=== PATIENT | male | born 1965 | race Caucasian/White ===

== ENCOUNTER 2020-08-20 10:37 | Outpatient (CLI) | payer BC, OTHER ==
--- NOTE | 2020-08-20 11:33 | RAD ---
Exam: Lumbar spine 5 views HISTORY: Left sciatic nerve pain FINDINGS: 5 lumbar type vertebra. Lumbar spine vertebral body height is maintained. No fracture. No spondylolisthesis. No spondylolysis. There is straightening of normal lumbar lordosis. Mild osteophyte formation at L1-L2. Mild loss of disc space at L4-L5 and L5-S1. Incidentals: Suture chain and surgical clips Visualized sacrum and bony pelvis are intact IMPRESSION: No radiographic evidence of significant degenerative change. Additional imaging if clinic ally warranted.
== END 2020-08-20 10:38 | disposition home or self-care (01) ==
LOC: RAD 10:37
PROVIDERS: ATTEND Nurse Practitioner Family
DX: M54.32 Sciatica, left side (principal); Z76.89 Persons encountering health services in other specified circumstances
CPT/HCPCS: 72110

== ENCOUNTER 2025-05-29 18:44 | Inpatient (IN) | payer MEDICARE ==
[2025-05-29 20:50] LABS: Hematocrit 29.3 % (42.0-52.0); Hemoglobin 9.9 g/dL (14.0-18.0); Mean Corpuscular Hemoglobin 34.4 pg (27.0-31.0); Mean Corpuscular Volume 101.7 fL (78.0-98.0); Platelet Count 160 10x3/uL (130-400); Red Blood Cell (RBC) Count 2.88 mill/uL (4.70-6.10); White Blood Cell (WBC) Count 4.80 10x3/uL (4.8-10.8)
[2025-05-29 20:59] LABS: Actual Bicarbonate (HCO3v) 26.3 mEq/L (22-28); Base Excess 4.0 mEq/L (-2.0 to +3.0); Calcium, Ionized (venous) 0.96 mmol/L (1.16-1.32); Chloride (VBG) 102 mmol/L (98-106); Hematocrit-VBG 28 % (42.0-52.0); Hemoglobin (Hb) 9.5 g/dL (13.1-17.2); Potassium (VBG) 3.87 mmol/L (3.70-5.30); Sodium 135 mmol/L (133-146)
[2025-05-29 21:14] LABS: ALT (SGPT) 337 U/L (Less than 45); AST (SGOT) 1433 U/L (11-34); Albumin 1.4 g/dL (3.1-4.5); Alkaline Phosphatase 501 U/L (40-110); Anion Gap 18 mmol/L (10-20); BUN (Urea Nitrogen) 76 mg/dL (8.4-25.7); Bilirubin, Total 0.9 mg/dL (0.3-1.2); Calc. Creatinine Clearance 0 mL/min (70-130); Calcium 6.9 mg/dL (7.8-10.44); Carbon Dioxide 28 mmol/L (22-29); Chloride 101 mmol/L (98-107); Globulin 3.3 g/dL (2.4-3.5); Glucose 36 mg/dL (70-105); Magnesium 2.6 mg/dL (1.6-2.6); Potassium 4.0 mmol/L (3.5-5.1); Sodium 143 mmol/L (136-145)
[2025-05-29 21:19] LABS: CAUTI Indications for Culture Dysuria,urgency,freq; Glucose, Urine (Dipstick) Normal (Negative); Leukocyte Negative Leu/uL (Negative); Protein, Urine (Dipstick) 20 mg/dL (Neg-Trace); RBC/HPF 0-3 HPF (0-3); Specific Gravity, Urine 1.026 (1.002-1.036); WBC/HPF 0-3 HPF (0-3)
[2025-05-29 21:21] LABS: Bacteria/HPF 1+ HPF (None Seen)
[2025-05-29 21:22] LABS: Urine Culture Reflex No No
[2025-05-29 21:28] LABS: Macrocytosis SLIGHT = 6-15 cells HPF (0-5); Platelet Adequacy Comment Platelets Normal; Smudge Cells 30.8 %
[2025-05-29] MEDS ORDERED: Calcium Chloride 1 GM/10 ML Abboject SYRINGE ONE (21:30)
[2025-05-29] MEDS ORDERED: Dextrose 50% Abboject 50 ML SYRINGE ONE (21:30)
[2025-05-29] MEDS ORDERED: cefTRIAXone (ROCEPHIN) 1 GM VIAL ONE ×2 (21:32→22:27)
[2025-05-29] MEDS ORDERED: CALCIUM GLUC 1 GM/NS 50 ML IV Bag ONE (21:44)
[2025-05-29] MEDS ORDERED: NOREPINEPHRINE 8 MG/250 ML-D5W 250 ML ONE (21:48)
[2025-05-29 22:05] LABS: INR-International Normal Ratio 1.4; PTT 35.6 sec (22.9-36.1); Prothrombin Time 17.4 sec (12.0-14.7)
[2025-05-29 22:11] LABS: Troponin I 0.017 ng/mL (< 0.028)
[2025-05-30] MEDS ORDERED: Dextrose 50% Abboject 50 ML SYRINGE ONE (00:01)
[2025-05-30] MEDS ORDERED: Glucagon 1 MG/ML KIT IM PRN (00:23)
[2025-05-30 01:15] VITALS: BMI 19.4
[2025-05-30] MEDS: Albumin 5% 12.5 GM (250 mL) BOT IVPB SCH (01:43)
[2025-05-30] MEDS: Pantoprazole 40 MG VIAL IVP SCH ×2 (01:43→09:24)
[2025-05-30] MEDS: Dextrose 50% Abboject 50 ML SYRINGE SLOW IVP SCH (01:47)
[2025-05-30 02:59] LABS: #Basophils Less than 0.03 10x3/uL (0.0-0.2); #Eosinophils 0.03 10x3/uL (0.0-0.7); #Monocytes 0.30 10x3/uL (0.11-0.59); #Neutrophils 3.80 10x3/uL (1.40-6.50); %Basophils 0.2 % (0.0-1.0); %Eosinophils 0.6 % (0.0-10.0); %Lymphocytes 16.9 % (21.0-51.0); %Monocytes 6.0 % (0.0-10.0); %Neutrophils 75.5 % (42.0-75.0); Hematocrit 26.7 % (42.0-52.0); Hemoglobin 8.9 g/dL (14.0-18.0); Mean Corpuscular Hemoglobin 33.8 pg (27.0-31.0); Mean Corpuscular Volume 101.5 fL (78.0-98.0); Platelet Count 149 10x3/uL (130-400); Red Blood Cell (RBC) Count 2.63 mill/uL (4.70-6.10); White Blood Cell (WBC) Count 5.03 10x3/uL (4.8-10.8)
[2025-05-30] MEDS: Dextrose 50% Abboject 50 ML SYRINGE SLOW IVP PRN (05:13)
[2025-05-30] MEDS: Pancrelipase DR 12,000 1 CAP PO SCH (09:12)
[2025-05-30] MEDS: Enoxaparin 40 MG (0.4 mL) SYRINGE SC SCH (09:24)
[2025-05-30] MEDS: cefTRIAXone\\ROCEPHIN 2 GM in Sodium Chloride 0.9% 100 ML IVPB SCH (17:39)
[2025-05-30] MEDS ORDERED: cefTRIAXone\\ROCEPHIN 1 GM in Sodium Chloride 0.9% 100 ML IVPB SCH (18:00)
[2025-05-31 04:36] LABS: #Basophils Less than 0.03 10x3/uL (0.0-0.2); #Eosinophils Less than 0.03 10x3/uL (0.0-0.7); #Monocytes 0.21 10x3/uL (0.11-0.59); #Neutrophils 2.39 10x3/uL (1.40-6.50); %Basophils 0.0 % (0.0-1.0); %Eosinophils 0.3 % (0.0-10.0); %Lymphocytes 29.2 % (21.0-51.0); %Monocytes 5.7 % (0.0-10.0); %Neutrophils 64.5 % (42.0-75.0); Hematocrit 21.3 % (42.0-52.0); Hemoglobin 7.1 g/dL (14.0-18.0); Mean Corpuscular Hemoglobin 33.5 pg (27.0-31.0); Mean Corpuscular Volume 100.5 fL (78.0-98.0); Platelet Count 125 10x3/uL (130-400); Red Blood Cell (RBC) Count 2.12 mill/uL (4.70-6.10); White Blood Cell (WBC) Count 3.70 10x3/uL (4.8-10.8)
[2025-05-31 04:56] LABS: ALT (SGPT) 151 U/L (Less than 45); AST (SGOT) 310 U/L (11-34); Albumin 2.2 g/dL (3.1-4.5); Alkaline Phosphatase 272 U/L (40-110); Anion Gap 9 mmol/L (10-20); BUN (Urea Nitrogen) 57 mg/dL (8.4-25.7); Bilirubin, Total 0.4 mg/dL (0.3-1.2); Calc. Creatinine Clearance 87 mL/min (70-130); Calcium 6.7 mg/dL (7.8-10.44); Carbon Dioxide 29 mmol/L (22-29); Chloride 100 mmol/L (98-107); Globulin 2.1 g/dL (2.4-3.5); Glucose 106 mg/dL (70-105); Potassium 3.3 mmol/L (3.5-5.1); Sodium 135 mmol/L (136-145)
[2025-05-31] MEDS ORDERED: Dextrose 50% Abboject 50 ML SYRINGE SLOW IVP PRN (05:54)
[2025-05-31] MEDS ORDERED: CALCIUM GLUC 1 GM/NS 50 ML 1 GM in Premix 1 BAG IVPB SCH (06:00)
[2025-05-31] MEDS ORDERED: Sodium Bicarb 50 MEQ/50 ML Abboject 8.4% SYRINGE IVP SCH (06:00)
[2025-05-31] MEDS: CALCIUM GLUC 1 GM/NS 50 ML 1 GM in Premix 1 BAG IVPB SCH (06:16)
[2025-06-01 04:49] LABS: #Basophils Less than 0.03 10x3/uL (0.0-0.2); #Eosinophils Less than 0.03 10x3/uL (0.0-0.7); #Monocytes 0.18 10x3/uL (0.11-0.59); #Neutrophils 2.45 10x3/uL (1.40-6.50); %Basophils 0.0 % (0.0-1.0); %Eosinophils 0.3 % (0.0-10.0); %Lymphocytes 25.1 % (21.0-51.0); %Monocytes 5.1 % (0.0-10.0); %Neutrophils 68.9 % (42.0-75.0); Hematocrit 23.8 % (42.0-52.0); Hemoglobin 8.0 g/dL (14.0-18.0); Mean Corpuscular Hemoglobin 33.9 pg (27.0-31.0); Mean Corpuscular Volume 100.8 fL (78.0-98.0); Platelet Count 122 10x3/uL (130-400); Red Blood Cell (RBC) Count 2.36 mill/uL (4.70-6.10); White Blood Cell (WBC) Count 3.55 10x3/uL (4.8-10.8)
[2025-06-01 05:00] LABS: Iron 61 ug/dL (65-175); Iron Binding Capacity, Total 41 mcg/dL (261-462)
[2025-06-01 05:04] LABS: ALT (SGPT) 117 U/L (Less than 45); AST (SGOT) 166 U/L (11-34); Albumin 1.9 g/dL (3.1-4.5); Alkaline Phosphatase 273 U/L (40-110); Anion Gap 12 mmol/L (10-20); BUN (Urea Nitrogen) 42 mg/dL (8.4-25.7); Bilirubin, Total 0.5 mg/dL (0.3-1.2); Calc. Creatinine Clearance 99 mL/min (70-130); Calcium 6.8 mg/dL (7.8-10.44); Carbon Dioxide 26 mmol/L (22-29); Chloride 99 mmol/L (98-107); Globulin 2.6 g/dL (2.4-3.5); Glucose 102 mg/dL (70-105); Iron 70 ug/dL (65-175); Iron Binding Capacity, Total 43 mcg/dL (261-462); Potassium 3.4 mmol/L (3.5-5.1); Sodium 134 mmol/L (136-145)
[2025-06-01] MEDS: CALCIUM GLUC 1 GM/NS 50 ML 1 GM in Premix 1 BAG IVPB SCH (06:49)
[2025-06-01] MEDS: Albumin 5% 25 GM (500 mL) BOT IVPB SCH (07:44)
[2025-06-01] MEDS: Potassium Chloride 20 MEQ in Premix 1 BAG IVPB SCH (12:27)
[2025-06-01] MEDS ORDERED: Sodium Bicarbonate 2.5 MEQ/5 ML SDV ONE (14:58)
[2025-06-01] MEDS ORDERED: Lidocaine 1% w/Epinephrine 1:100K 20 ML VIAL ONE (14:58)
[2025-06-01] MEDS ORDERED: Lidocaine 1% PF 5 ML VIAL ONE (14:58)
[2025-06-01 17:55] LABS: RBC Count-Automated (BF) 39 /cu.mm; WBC/Nucleated-Auto (BF) 49 /cu.mm
[2025-06-01 18:35] LABS: BF Segmented Neutrophils 23 %; Cell Count Non Hematic 29 %
[2025-06-01] MEDS: Ondansetron PF 4 MG/2 ML Vial IVP PRN (20:41)
[2025-06-02 05:36] LABS: #Basophils Less than 0.03 10x3/uL (0.0-0.2); #Eosinophils Less than 0.03 10x3/uL (0.0-0.7); #Monocytes 0.25 10x3/uL (0.11-0.59); #Neutrophils 3.46 10x3/uL (1.40-6.50); %Basophils 0.0 % (0.0-1.0); %Eosinophils 0.2 % (0.0-10.0); %Lymphocytes 23.9 % (21.0-51.0); %Monocytes 5.1 % (0.0-10.0); %Neutrophils 70.0 % (42.0-75.0); Hematocrit 27.3 % (42.0-52.0); Hemoglobin 9.3 g/dL (14.0-18.0); Mean Corpuscular Hemoglobin 34.2 pg (27.0-31.0); Mean Corpuscular Volume 100.4 fL (78.0-98.0); Platelet Count 152 10x3/uL (130-400); Red Blood Cell (RBC) Count 2.72 mill/uL (4.70-6.10); White Blood Cell (WBC) Count 4.94 10x3/uL (4.8-10.8)
[2025-06-02] MEDS: Acetaminophen 325 MG TAB PO PRN (05:39)
[2025-06-02 05:52] LABS: ALT (SGPT) 94 U/L (Less than 45); AST (SGOT) 99 U/L (11-34); Albumin 1.8 g/dL (3.1-4.5); Alkaline Phosphatase 262 U/L (40-110); Anion Gap 8 mmol/L (10-20); BUN (Urea Nitrogen) 35 mg/dL (8.4-25.7); Bilirubin, Total 0.4 mg/dL (0.3-1.2); Calc. Creatinine Clearance 105 mL/min (70-130); Calcium 7.1 mg/dL (7.8-10.44); Carbon Dioxide 28 mmol/L (22-29); Chloride 96 mmol/L (98-107); Globulin 2.6 g/dL (2.4-3.5); Glucose 111 mg/dL (70-105); Potassium 4.2 mmol/L (3.5-5.1); Sodium 128 mmol/L (136-145)
[2025-06-03 06:23] LABS: Anion Gap 9 mmol/L (10-20); BUN (Urea Nitrogen) 39 mg/dL (8.4-25.7); Calc. Creatinine Clearance 88 mL/min (70-130); Calcium 6.8 mg/dL (7.8-10.44); Carbon Dioxide 29 mmol/L (22-29); Chloride 96 mmol/L (98-107); Glucose 62 mg/dL (70-105); Potassium 3.7 mmol/L (3.5-5.1); Sodium 130 mmol/L (136-145)
[2025-06-04 05:40] LABS: #Basophils Less than 0.03 10x3/uL (0.0-0.2); #Eosinophils Less than 0.03 10x3/uL (0.0-0.7); #Monocytes 0.31 10x3/uL (0.11-0.59); #Neutrophils 7.49 10x3/uL (1.40-6.50); %Basophils 0.1 % (0.0-1.0); %Eosinophils 0.1 % (0.0-10.0); %Lymphocytes 14.8 % (21.0-51.0); %Monocytes 3.4 % (0.0-10.0); %Neutrophils 81.1 % (42.0-75.0); Hematocrit 30.2 % (42.0-52.0); Hemoglobin 10.3 g/dL (14.0-18.0); Mean Corpuscular Hemoglobin 34.1 pg (27.0-31.0); Mean Corpuscular Volume 100.0 fL (78.0-98.0); Platelet Count 176 10x3/uL (130-400); Red Blood Cell (RBC) Count 3.02 mill/uL (4.70-6.10); White Blood Cell (WBC) Count 9.24 10x3/uL (4.8-10.8)
[2025-06-04 05:56] LABS: ALT (SGPT) 109 U/L (Less than 45); AST (SGOT) 171 U/L (11-34); Albumin 1.8 g/dL (3.1-4.5); Alkaline Phosphatase 286 U/L (40-110); Anion Gap 11 mmol/L (10-20); BUN (Urea Nitrogen) 37 mg/dL (8.4-25.7); Bilirubin, Total 0.4 mg/dL (0.3-1.2); Calc. Creatinine Clearance 111 mL/min (70-130); Calcium 6.9 mg/dL (7.8-10.44); Carbon Dioxide 22 mmol/L (22-29); Chloride 99 mmol/L (98-107); Globulin 2.7 g/dL (2.4-3.5); Glucose 62 mg/dL (70-105); Potassium 4.2 mmol/L (3.5-5.1); Sodium 128 mmol/L (136-145)
[2025-06-04] MEDS ORDERED: Electrolyte Replacement Protocol 1 EACH FS SCH (06:15)
[2025-06-04 10:30] LABS: Lipase Less than 4 U/L (8-78)
[2025-06-04 15:07] VITALS: BMI 19.8
[2025-06-06 05:21] LABS: #Basophils Less than 0.03 10x3/uL (0.0-0.2); #Eosinophils Less than 0.03 10x3/uL (0.0-0.7); #Monocytes 0.30 10x3/uL (0.11-0.59); #Neutrophils 5.08 10x3/uL (1.40-6.50); %Basophils 0.0 % (0.0-1.0); %Eosinophils 0.1 % (0.0-10.0); %Lymphocytes 24.4 % (21.0-51.0); %Monocytes 4.2 % (0.0-10.0); %Neutrophils 70.9 % (42.0-75.0); Hematocrit 28.9 % (42.0-52.0); Hemoglobin 9.9 g/dL (14.0-18.0); Mean Corpuscular Hemoglobin 33.8 pg (27.0-31.0); Mean Corpuscular Volume 98.6 fL (78.0-98.0); Platelet Count 224 10x3/uL (130-400); Red Blood Cell (RBC) Count 2.93 mill/uL (4.70-6.10); White Blood Cell (WBC) Count 7.17 10x3/uL (4.8-10.8)
[2025-06-06 05:53] LABS: ALT (SGPT) 415 U/L (Less than 45); AST (SGOT) 1119 U/L (11-34); Albumin 1.8 g/dL (3.1-4.5); Alkaline Phosphatase 532 U/L (40-110); Anion Gap 10 mmol/L (10-20); BUN (Urea Nitrogen) 32 mg/dL (8.4-25.7); Bilirubin, Total 0.6 mg/dL (0.3-1.2); Calc. Creatinine Clearance 132 mL/min (70-130); Calcium 6.9 mg/dL (7.8-10.44); Carbon Dioxide 25 mmol/L (22-29); Chloride 102 mmol/L (98-107); Globulin 2.7 g/dL (2.4-3.5); Glucose 68 mg/dL (70-105); Potassium 4.1 mmol/L (3.5-5.1); Sodium 133 mmol/L (136-145)
[2025-06-07 05:32] LABS: Free T4 (Free Thyroxine) 0.58 ng/dL (0.70-1.48); Thyroid Stimulating Hormone 3.8868 uIU/mL (0.35-4.94)
[2025-06-08 09:26] LABS: #Basophils Less than 0.03 10x3/uL (0.0-0.2); #Eosinophils Less than 0.03 10x3/uL (0.0-0.7); #Monocytes 0.27 10x3/uL (0.11-0.59); #Neutrophils 4.48 10x3/uL (1.40-6.50); %Basophils 0.2 % (0.0-1.0); %Eosinophils 0.2 % (0.0-10.0); %Lymphocytes 20.8 % (21.0-51.0); %Monocytes 4.5 % (0.0-10.0); %Neutrophils 74.0 % (42.0-75.0); Hematocrit 28.6 % (42.0-52.0); Hemoglobin 9.6 g/dL (14.0-18.0); Mean Corpuscular Hemoglobin 33.9 pg (27.0-31.0); Mean Corpuscular Volume 101.1 fL (78.0-98.0); Platelet Count 196 10x3/uL (130-400); Red Blood Cell (RBC) Count 2.83 mill/uL (4.70-6.10); White Blood Cell (WBC) Count 6.05 10x3/uL (4.8-10.8)
[2025-06-08 09:38] LABS: ALT (SGPT) 343 U/L (Less than 45); AST (SGOT) 491 U/L (11-34); Albumin 1.9 g/dL (3.1-4.5); Alkaline Phosphatase 513 U/L (40-110); Anion Gap 10 mmol/L (10-20); BUN (Urea Nitrogen) 41 mg/dL (8.4-25.7); Bilirubin, Total 0.5 mg/dL (0.3-1.2); Calc. Creatinine Clearance 99 mL/min (70-130); Calcium 7.2 mg/dL (7.8-10.44); Carbon Dioxide 27 mmol/L (22-29); Chloride 102 mmol/L (98-107); Globulin 2.7 g/dL (2.4-3.5); Glucose 78 mg/dL (70-105); Potassium 4.3 mmol/L (3.5-5.1); Sodium 135 mmol/L (136-145)
[2025-06-08 11:13] LABS: Calcitriol (1,25 di-OH Vit D) <5.0 pg/mL (24.8-81.5)
[2025-06-09 11:59] VITALS: BP 96/67; TEMP 97.5
== END 2025-06-09 13:05 | DRG 640 ==
LOC: ERS 18:44 → CCU 22:33 → IMCU/EMU 06-01 06:43 → T4-A 06-03 11:36
PROVIDERS: ADMIT Internal Medicine; ATTEND Internal Medicine
PROC: 3E03329 Introduction of Other Anti-infective into Peripheral Vein, Percutaneous Approach (ICD-10-PCS; 2025-05-29)
PROC: 30233J1 Transfusion of Nonautologous Serum Albumin into Peripheral Vein, Percutaneous Approach (ICD-10-PCS; 2025-05-30)
PROC: 0D9670Z Drainage of Stomach with Drainage Device, Via Natural or Artificial Opening (ICD-10-PCS; 2025-05-30)
PROC: 0T9B70Z Drainage of Bladder with Drainage Device, Via Natural or Artificial Opening (ICD-10-PCS; 2025-05-30)
PROC: 05HY33Z Insertion of Infusion Device into Upper Vein, Percutaneous Approach (ICD-10-PCS; 2025-05-30)
PROC: 0W9G3ZZ Drainage of Peritoneal Cavity, Percutaneous Approach (ICD-10-PCS; principal; 2025-06-01)
DX: E16.2 Hypoglycemia, unspecified (principal); A41.51 Sepsis due to Escherichia coli [E. coli]; E43 Unspecified severe protein-calorie malnutrition; K72.00 Acute and subacute hepatic failure without coma; R57.1 Hypovolemic shock; A41.59 Other Gram-negative sepsis; Z51.5 Encounter for palliative care; Z66 Do not resuscitate; B37.81 Candidal esophagitis; Z68.1 Body mass index [BMI] 19.9 or less, adult; K56.7 Ileus, unspecified; R18.8 Other ascites; J90 Pleural effusion, not elsewhere classified; J98.11 Atelectasis; N17.9 Acute kidney failure, unspecified; E86.9 Volume depletion, unspecified; I95.9 Hypotension, unspecified; E88.09 Other disorders of plasma-protein metabolism, not elsewhere classified; K74.60 Unspecified cirrhosis of liver; E83.42 Hypomagnesemia; D63.8 Anemia in other chronic diseases classified elsewhere; E83.51 Hypocalcemia; K76.89 Other specified diseases of liver; Z85.07 Personal history of malignant neoplasm of pancreas; Z98.890 Other specified postprocedural states; Z87.891 Personal history of nicotine dependence; Z88.8 Allergy status to other drugs, medicaments and biological substances; Z79.891 Long term (current) use of opiate analgesic; Z79.899 Other long term (current) drug therapy
CPT/HCPCS: 36415; 36416; 49083; 71045; 74176; 76705; 80048; 80053; 80400; 81001; 82042; 82140; 82306; 82308; 82652; 82728; 82805; 83540; 83550; 83605; 83690; 83735; 83970; 84100; 84439; 84443; 84484; 85025; 85060; 85610; 85730; 87040; 87070; 87077; 87086; 87149; 87186; 87205; 89051; 94760; 96360; 96361; 96365; 96366; 96368; 96375; 97139; J0613; J0696; J0834; J1650; J2405; J2470; J3480; J7070; J7999; P9045